=== PATIENT | female | born 1970 | race Caucasian/White ===

== ENCOUNTER 2022-07-21 13:12 | Outpatient (CLI) | payer OTHER, SELFPAY ==
--- NOTE | 2022-07-21 13:24 | MM_ITS ---
WS: [id number] BILATERAL 3D TOMOSYNTHESIS DIGITAL SCREENING MAMMOGRAPHY WITH CAD CLINICAL INFORMATION: SCREENING HISTORY: Screening mammogram. No current complaints. COMPARISON: None. TECHNIQUE: Bilateral CC and MLO views. FINDINGS: Bilateral subpectoral breast implants appear intact. The breasts are composed of heterogeneous fibroglandular density tissue, which can limit the detectio n of small underlying mass lesions. No suspicious mass, asymmetry, calcifications, or architectural d istortion. No evidence of malignancy. Diffuse scattered punctate calcifications and milk of calcium b ilateral breasts. MM/[id number] IMPRESSION: BI-RADS: 2-Benign FOLLOW UP: 1 Year Follow-up Recommend return to annual screening mammography.
== END 2022-07-21 13:13 | disposition home or self-care (01) ==
LOC: RAD 13:13
PROVIDERS: Visit Provider Nurse Practitioner Family
DX: Z12.31 Encounter for screening mammogram for malignant neoplasm of breast (principal)
CPT/HCPCS: 77063; 77067

== ENCOUNTER 2023-10-24 15:22 | Outpatient (CLI) | payer OTHER, SELFPAY ==
--- NOTE | 2023-10-24 15:29 | MM_ITS ---
WS: [id number] Bilateral screening 3D tomosynthesis digital mammogram, 10/24/2023 Clinical Data: SCREENING Comparison: 07/21/2022 Findings: The breast parenchymal pattern shows heterogeneous density. Augmentation mammoplasty implants are int act. There are mole markers on both breasts. No spiculated masses or clustered calcifications are see n. There are no secondary signs of carcinoma. Impression: 1. Negative bilateral mammogram unchanged. 2. Recommend annual screening mammograms. MM/[id number] BIRADS: 1-Negative FOLLOW UP: 1 Year Follow-up The CAD relay checker was used.
== END 2023-10-24 15:23 | disposition home or self-care (01) ==
LOC: RAD 15:25
PROVIDERS: Visit Provider Nurse Practitioner Family
DX: Z12.31 Encounter for screening mammogram for malignant neoplasm of breast (principal)
CPT/HCPCS: 77063; 77067

== ENCOUNTER 2023-12-06 10:49 | Day surgery (SDC) | payer OTHER, SELFPAY ==
--- NOTE | 2023-12-06 10:58 | ANES.PREANE2 ---
Pre-Anesthetic Assessment Height/Weight: Height 1.68 m Operation Date: 12/06/23 11:45 Proposed Procedures p Colonoscopy(Not Applicable) - Joshua Ramirez DO Social No alcohol and No tobacco Exam alert, oriented x 3, clear to auscultation bilaterally and regular rate & rhythm Airway Mallampati: Class I History/ROS No significant history except as noted Anesthetic Plan ASA status: 1 Anesthesia: MAC Medications/Allergies Home Medications Medication Instructions Recorded Confirmed Last Taken Type naproxen sodium 220 mg tablet 220 mg PO Q8H PRN Pain 12/04/23 12/04/23 12/03/23 History (Aleve) Allergies Allergy/AdvReac Type Severity Reaction Status Date / Time No Known Allergies Allergy Unverified 12/04/23 12:03 PFSH Anesthesia Family History Unknown Cancer lung Unknown Colon cancer uncle Social History Smoking and tobacco/nicotine status: never used tobacco/nicotine Alcohol intake: never Data Anesthesia Cardiac Studies: No Data to Display
[2023-12-06 11:07] VITALS: BMI 26.6
[2023-12-06 11:17] VITALS: BP 115/75; PULSE 92; RESP 18; TEMP 37; O2SAT 97
[2023-12-06] MEDS: sodium chloride 0.9% 1,000 ML 30 ML IV (11:22)
--- NOTE | 2023-12-06 12:00 | PM.HP ---
Providers/Chief Complaint Primary Care Provider: Veronica Villanueva Chief Complaint: R19.5 History of Present Illness Fidelia Pastrana is a 53 year old female Review of Systems General: Reports: 10 or more systems reviewed and unremarkable except in HPI and below Medications/Allergies Home Medications Medication Instructions Recorded Confirmed Last Taken Type No Known Home Medications 12/06/23 12/06/23 Unknown History Allergies Allergy/AdvReac Type Severity Reaction Status Date / Time No Known Allergies Allergy Unverified 12/04/23 12:03 PFSH Acute PFSH: Family History Unknown Cancer lung Unknown Colon cancer uncle Social History Smoking and tobacco/nicotine status: never used tobacco/nicotine Alcohol intake: never Vitals/I&O/Wt Last Vital Signs Temp 98.6 F 12/06/23 11:17 Pulse 92 12/06/23 11:17 Resp 18 12/06/23 11:17 BP 115/75 12/06/23 11:17 Pulse Ox 97 12/06/23 11:17 O2 Del Method Room Air 12/06/23 11:17 Weight last 48 hrs Weight 165 lb A&P Assessment and plan (1) Positive colorectal cancer screening using Cologuard test: Plan Colonoscopy Attestations Medical Necessity Statement*: Home Coding Level of Care Code Acute Code for Chg Fwd Diagnoses Positive colorectal cancer screening using Cologuard test R19.5
[2023-12-06 12:15] LABS: OR HCG Qualitative Urine Negative (Negative)
[2023-12-06 12:25] VITALS: BP 93/67; PULSE 88; RESP 17; TEMP 36.5; O2SAT 97
[2023-12-06 12:30] VITALS: BP 97/68; PULSE 80; RESP 16; O2SAT 95
[2023-12-06 12:41] VITALS: BP 112/70; PULSE 83; RESP 17; O2SAT 99
--- NOTE | 2023-12-06 13:28 | ANE.PACU2 ---
Inpatient post-anesthesia follow up: Vital signs: Temperature 97.7 F Pulse Rate 83 Respiratory Rate 17 Blood Pressure 112/70 Pulse Oximetry 99 Oxygen Delivery Me thod Room Air Oxygen Flow Rate Fraction of Inspir ed Oxygen Hydration adequate: Yes Nausea and vomiting: No Pain level: 1 Mental status: Baseline
== END 2023-12-06 13:00 | disposition home or self-care (01) ==
PROVIDERS: Anesthesiology; PCP Nurse Practitioner Family; Visit Provider Surgery
PROC: 0DJD8ZZ Inspection of Lower Intestinal Tract, Via Natural or Artificial Opening Endoscopic (ICD-10-PCS; CPT 45378; principal; 2023-12-06 11:45)
DX: Z12.11 Encounter for screening for malignant neoplasm of colon (principal); R19.5 Other fecal abnormalities
CPT/HCPCS: 45378; 81025; J1100; J2405; J2704; J7030

== ENCOUNTER 2024-05-31 10:19 | Outpatient (CLI) | payer OTHER, SELFPAY ==
--- NOTE | 2024-05-31 | XR_ITS ---
WS: [id number] Exam: XR lumbar spine f/e only [id number] Date/Time of Exam: 05/31/2024 10:40 AM Reason For Exam: BACK PAIN No fracture or dislocation. 8 mm retrolisthesis of L2 on L3 and 6 mm retrolisthesis of L3 on L4 most pronounced in extension. No other flexion or extension instability noted. Early degenerative narrowin g of the L1-2, L2-3 and L3-4 discs. Increased lumbar lordosis. Moderate facet DJD at L4-5 and L5-S1. XR/XR lumbar spine f/e only [id number] IMPRESSION: 1. 8 mm retrolisthesis of L2 on L3 and 6 mm retrolisthesis of L3 on L4 most pro nounced during extension. 2. Mild degenerative changes as detailed above.
== END 2024-05-31 10:20 | disposition home or self-care (01) ==
LOC: RAD 10:20
PROVIDERS: PCP Nurse Practitioner Family; Visit Provider Nurse Practitioner Family
DX: M43.16 Spondylolisthesis, lumbar region (principal); M51.360 Other intervertebral disc degeneration, lumbar region with discogenic back pain only
CPT/HCPCS: 72120

== ENCOUNTER 2024-09-23 15:44 | Outpatient (CLI) | payer OTHER, SELFPAY ==
--- NOTE | 2024-09-23 16:00 | MR_ITS ---
WS: [id number] MRI LUMBAR SPINE NONCONTRAST TECHNIQUE: Sagittal T1, T2 and STIR imaging. Axial T1 and T2 imaging. CLINICAL INFORMATION: VERTEBROGENIC LOW BACK PAIN COMPARISON: None. FINDINGS: No lumbar curve. No acute compression. No high-grade central canal stenosis. Mild disc bulging worse at L1-2. L1-L2: Mild disc bulge with endplate ridging. Slight narrowing the LEFT subarticular recess. Mild facet arthropathy. L2-L3: Mild annular bulging. Slight narrowing LEFT subarticular recess. Mild facet arthropathy. Mild LEFT foraminal narrowing. L3-L4: Slight retrolisthesis. Mild annular bulging. Slight narrowing subarticular recess bilaterally. Moderate facet arthropathy. Mild LEFT foraminal narrowing. L4-L5: Mild annular bulging with a shallow central protrusion. Slight effacement of the ventral thecal sac. Mild LEFT foraminal narrowing. RIGHT foramen is patent. Moderate facet arthropathy. L5-S1: No significant disc bulging. Moderate facet arthropathy. Spinal canal and foramen are patent. Visualized pelvic bony structures: Normal. Paravertebral soft tissues: Normal. Partially visualized retroverted and retroflexed uterus. Incidental hemangioma T11 vertebral body. MR/MR lumbar spine wo con* [id number] IMPRESSION: 1. Mild lumbar curve. No acute compression. 2. Mild disc bulging L1-2 with slight narrowing LEFT subarticular recess. 3. Shallow central protrusion L4-5 with slight encroachment on the traversing LEFT greater than RIGHT L5 nerve roots. 4. Moderate facet arthropathy L3-L5. 5. Mild foraminal narrowing described above.
== END 2024-09-23 15:45 | disposition home or self-care (01) ==
PROVIDERS: PCP Nurse Practitioner Family; Visit Provider Anesthesiology Pain Medicine
DX: M51.26 Other intervertebral disc displacement, lumbar region (principal); M43.8X6 Other specified deforming dorsopathies, lumbar region; M51.369 Other intervertebral disc degeneration, lumbar region without mention of lumbar back pain or lower extremity pain; M48.061 Spinal stenosis, lumbar region without neurogenic claudication; M47.896 Other spondylosis, lumbar region; M51.379 Other intervertebral disc degeneration, lumbosacral region without mention of lumbar back pain or lower extremity pain; M47.897 Other spondylosis, lumbosacral region; N85.4 Malposition of uterus; D18.09 Hemangioma of other sites
CPT/HCPCS: 72148

== ENCOUNTER 2025-03-11 12:56 | Outpatient (CLI) | payer OTHER, SELFPAY ==
--- NOTE | 2025-03-11 13:02 | MM_ITS ---
WS: [id number] BILATERAL SCREENING DIGITAL BREAST MAMMOGRAPHY WITH ELEANOR DISPLACEMENT VIEWS. CAD PERFORMED. HISTORY: SCREENING MAMMOGRAM COMPARISON: 10/24/2023, 09/21/2021 Bilateral craniocaudal and mediolateral oblique views are performed with tomosynthesis and SM. Eleanor displacement views in CC and MLO projection also performed. Breasts composition: The breasts are heterogeneously dense, which may obscure small masses. Bilateral implants are intact. No implant rupture. No capsular contraction. Small scattered numerous calcifications throughout each breast. No suspicious cluster of calcifications. MM/MM [facility] tomosynthesis [id number] IMPRESSION: BI-RADS: 2 - Benign FOLLOW-UP: 1 Year Follow-up
== END 2025-03-11 12:57 | disposition home or self-care (01) ==
LOC: RAD 12:57
PROVIDERS: PCP Nurse Practitioner Family; Visit Provider Nurse Practitioner Family
DX: Z12.31 Encounter for screening mammogram for malignant neoplasm of breast (principal); R92.323 Mammographic fibroglandular density, bilateral breasts; R92.333 Mammographic heterogeneous density, bilateral breasts; R92.1 Mammographic calcification found on diagnostic imaging of breast; Z98.82 Breast implant status
CPT/HCPCS: 77063; 77067